=== PATIENT | male | born 1990 | race Caucasian/White ===

== ENCOUNTER 2021-12-16 04:58 | Emergency (ER) | payer SELFPAY ==
[2021-12-16] MEDS ORDERED: LORazepam 1 MG TAB PO ONE (07:10)
[2021-12-16] MEDS ORDERED: SODIUM CHLORIDE 0.9% 1000 ML 1,000 ML IV ONE ×2 (07:10→14:16)
[2021-12-16] MEDS ORDERED: LORazepam 2 MG/ML VIAL ONE (07:48)
[2021-12-16] MEDS ORDERED: LORazepam 2 MG/ML VIAL IV ONE ×3 (07:53→13:02)
--- NOTE | 2021-12-16 07:57 | Emergency Department Report ---
ED General Adult HPI - General Chief complaint: Chest Pain Stated complaint: CHEST PAIN Time Seen by Provider: 12/16/21 06:34 Source: EMS Mode of arrival: Stretcher Limitations: No Limitations - History of Present Illness Initial comments: 30-year-old male patient presents with complaints of chest pain, shortness of breath, and tremors starting about 1 hour ago. He reports that he is a chronic alcoholic and that his last drink was around 12 AM last night in which he had 3 beers. He also reports that he drank 3 twisted teas that are high in caffeine. Past medical history includes alcoholic induced pancreatitis. He denies any cough, hemoptysis, loss of taste or smell, or being vaccinated against COVID-19. No leg pain/swelling, recent long travel, or history of DVT/PE/cancer per patient. He also admits to history of alcohol withdrawal seizures Severity scale (0 -10): 5 - Related Data Previous Rx's Medication Instructions Recorded Last Taken Type LORazepam [Ativan] 0.5 mg PO Q8H PRN #5 tablet 12/16/21 Unknown Rx Allergies Allergy/AdvReac Type Severity Reaction Status Date / Time No Known Allergies Allergy Unverified 12/16/21 07:55 ED Review of Systems ROS: Stated complaint: CHEST PAIN Other details as noted in HPI Constitutional: denies: chills, fever, malaise Respiratory: shortness of breath, SOB at rest. denies: cough, SOB with exertion Cardiovascular: chest pain Gastrointestinal: denies: abdominal pain, nausea, vomiting Skin: denies: change in color Neurological: denies: headache, numbness, paresthesias, abnormal gait Hematological/Lymphatic: denies: swollen glands ED Past Medical Hx - Past Medical History Previous Medical History?: No - Medications Home Medications: Home Medications Medication Instructions Recorded Confirmed Last Taken Type LORazepam [Ativan] 0.5 mg PO Q8H PRN #5 tablet 12/16/21 Unknown Rx ED Physical Exam - General Limitations: No Limitations General appearance: alert, anxious, other (Active tremor noted of right hand) - Head Head exam: Present: atraumatic, normocephalic - Eye Eye exam: Present: normal appearance. Absent: scleral icterus - Neck Neck exam: Present: normal inspection - Respiratory Respiratory exam: Present: normal lung sounds bilaterally. Absent: respiratory distress - Cardiovascular Cardiovascular Exam: Present: regular rate, normal rhythm. Absent: systolic murmur, diastolic murmur, rubs, gallop - GI/Abdominal GI/Abdominal exam: Present: soft. Absent: distended, tenderness - Extremities Exam Extremities exam: Present: full ROM. Absent: calf tenderness (No tenderness to palpation or swelling noted to the legs bilaterally) - Neurological Exam Neurological exam: Present: alert, oriented X3, normal gait - Expanded Neurological Exam Expanded Best Eye Response ([place]): (4) open spontaneously Best Motor Response ([place]): (6) obeys commands Best Verbal Response ([place]): (5) oriented Casandra Total: 15 - Psychiatric Psychiatric exam: Present: normal affect, normal mood - Skin Skin exam: Present: warm, dry, intact, normal color. Absent: rash ED Course Vital Signs 12/16/21 04:58 Temperature 98.9 F Pulse Rate 95 H Respiratory 18 Rate Blood Pressure 129/86 [Right] O2 Sat by Pulse 99 Oximetry ED Medical Decision Making - Lab Data Result diagrams: 12/16/21 10:28 12/16/21 10:28 Lab Results 12/16/21 12/16/21 12/16/21 Range/Units 10:28 10:28 10:28 WBC 5.5 (4.5-11.0) K/mm3 RBC 4.99 (3.65-5.03) M/mm3 Hgb 15.9 H (11.8-15.2) gm/dl Hct 48.4 H (35.5-45.6) % MCV 97 H (84-94) fl MCH 32 (28-32) pg MCHC 33 (32-34) % RDW 13.6 (13.2-15.2) % Plt Count 102 L (140-440) K/mm3 Lymph % (Auto) 20.1 (13.4-35.0) % [place] % (Auto) 8.0 H (0.0-7.3) % Eos % (Auto) 0.2 (0.0-4.3) % Baso % (Auto) 1.2 (0.0-1.8) % Lymph # (Auto) 1.1 L (1.2-5.4) K/mm3 [place] # (Auto) 0.4 (0.0-0.8) K/mm3 Eos # (Auto) 0.0 (0.0-0.4) K/mm3 Baso # (Auto) 0.1 (0.0-0.1) K/mm3 Seg Neutrophils % 70.5 H (40.0-70.0) % Seg Neutrophils # 3.9 (1.8-7.7) K/mm3 Sodium 137 (137-145) mmol/L Potassium 3.7 (3.6-5.0) mmol/L Chloride 99.9 (98-107) mmol/L Carbon Dioxide 21 L (22-30) mmol/L Anion Gap 20 mmol/L BUN 2 L (9-20) mg/dL Creatinine 0.5 L (0.8-1.3) mg/dL Estimated GFR > 60 ml/min BUN/Creatinine Ratio 4 % Glucose 100 (75-100) mg/dL Calcium 8.8 (8.4-10.2) mg/dL Total Bilirubin 1.80 H (0.1-1.2) mg/dL AST 168 H (5-40) units/L ALT 49 (7-56) units/L Alkaline Phosphatase 228 H (35-129) units/L Troponin T < 0.010 (0.00-0.029) ng/mL NT-Pro-B Natriuret Pep 5.07 (0-450) pg/mL Total Protein 8.3 H (6.3-8.2) g/dL Albumin 4.0 (3.9-5) g/dL Albumin/Globulin Ratio 0.9 % Plasma/Serum Alcohol 0.09 H (0-0.07) % - Medical Decision Making 30-year-old male patient presents with complaints of chest pain, shortness of breath, and tremors starting about 1 hour ago. He reports that he is a chronic alcoholic and that his last drink was around 12 AM last night in which he had 3 beers. He also reports that he drank 3 twisted teas that are high in caffeine. Past medical history includes alcoholic induced pancreatitis. He denies any cough, hemoptysis, loss of taste or smell, or being vaccinated against COVID-19. No leg pain/swelling, recent long travel, or history of DVT/PE/cancer per patient. He also admits to history of alcohol withdrawal seizures CIWAA score = 6 Patient given 2 rounds of IV Ativan 2 mg, banana bag, normal saline, and oral Klonopin. Troponin is normal. No acute abnormalities noted on EKG or chest x- ray. He denies any further chest pain. Heart score = 1. Tremor significantly improved. He is clinically sober. Discussed abnormal LFTs, patient verbalizes history of this. Patient given information for alcohol abuse. Discussed strict return precautions in detail with patient who verbalized understanding Critical care attestation.: If time is entered above; I have spent that time in minutes in the direct care of this critically ill patient, excluding procedure time. ED Disposition Clinical Impression: Alcohol withdrawal Disposition: 01 HOME / SELF CARE / HOMELESS Is pt being admited?: No Condition: Stable Instructions: Finding Treatment for Addiction, Alcohol Withdrawal Syndrome, [id number] Prescriptions: LORazepam [Ativan] 0.5 mg PO Q8H PRN #5 tablet PRN Reason: tremors Referrals: PRIMARY CARE, [Primary Care Provider] - 3-5 Days [facility] [Provider Group] - 3-5 Days
[2021-12-16] MEDS ORDERED: THIAMINE 100 MG, FOLIC ACID 1 MG, MULTIPLE VITAMIN INJ, ADULT 10 ML in SODIUM CHLORIDE ... IV ONE (09:00)
[2021-12-16 10:50] LABS: Basophils # (Auto) 0.1 K/mm3 (0.0-0.1); Basophils % (Auto) 1.2 % (0.0-1.8); Eosinophils % (Auto) 0.2 % (0.0-4.3); Hematocrit 48.4 % (35.5-45.6); Hemoglobin 15.9 gm/dl (11.8-15.2); Lymphocytes # (Auto) 1.1 K/mm3 (1.2-5.4); Lymphocytes % (Auto) 20.1 % (13.4-35.0); Mean Corpuscular HGB Conc 33 % (32-34); Mean Corpuscular Volume 97 fl (84-94); Monocytes # (Auto) 0.4 K/mm3 (0.0-0.8); Platelet Count 102 K/mm3 (140-440); Red Blood Count 4.99 M/mm3 (3.65-5.03); Red Cell Distribution Width 13.6 % (13.2-15.2)
[2021-12-16 11:15] LABS: Alanine Aminotransferase 49 units/L (7-56); Blood Urea Nitrogen 2 mg/dL (9-20); Calcium 8.8 mg/dL (8.4-10.2); Hemolysis Index 5
[2021-12-16 11:22] LABS: BUN/Creatinine Ratio 4
--- NOTE | 2021-12-16 11:57 | XRay Report ---
CHEST 2 VIEWS INDICATION / CLINICAL INFORMATION: chest pain. COMPARISON: None available. FINDINGS: SUPPORT DEVICES: None. HEART / MEDIASTINUM: No significant abnormality. LUNGS / PLEURA: No significant pulmonary abnormality. No significant pleural effusion. No pneumothora x. ADDITIONAL FINDINGS: No significant additional findings. IMPRESSION: 1. No acute abnormality of the chest. Signer Name: José Ramos MD Signed: 12/16/2021 11:53 AM Workstation Name: [id number]
[2021-12-16 16:19] VITALS: BP 147/89
[2021-12-16] MEDS ORDERED: clonazePAM 0.5 MG TAB PO ONE (16:28)
== END 2021-12-16 16:19 | disposition home or self-care (01) ==
LOC: ED 04:58
DX: F10.239 Alcohol dependence with withdrawal, unspecified (principal); R07.9 Chest pain, unspecified; R06.02 Shortness of breath
CPT/HCPCS: 36415; 71046; 80053; 83880; 84484; 85025; 93005; 96365; 96366; 96375; 96376; 99284; J2060; J3411; J3490; J7030; 80320; Q0162; G0480

== ENCOUNTER 2022-07-19 18:16 | Inpatient (IN) | payer SELFPAY ==
[2022-07-19] MEDS ORDERED: SODIUM CHLORIDE 0.9% 1000 ML 1,000 ML ONE (18:42)
[2022-07-19] MEDS ORDERED: ONDANSETRON 4 MG/2 ML INJ IV ONE (19:14)
[2022-07-19] MEDS ORDERED: SODIUM CHLORIDE 0.9% 1000 ML 1,000 ML IV ONE (19:16)
--- NOTE | 2022-07-19 19:22 | Emergency Department Report ---
ED Alcohol HPI - General Chief Complaint: Alcohol Stated Complaint: ALCOHOL WITHDRAWL Time Seen by Provider: 07/19/22 18:58 Source: patient, EMS Mode of arrival: Stretcher Limitations: Physical Limitation - History of Present Illness Initial Comments: 31-year-old male alcoholic who presented with generalized shaking and nausea without emesis that started this morning and progressively getting worse. Last alcohol drink was yesterday. "When i drink i drink liquor and beer heavily". He also reports some mild abdominal discomfort. No other modifying or associated factors. MD Complaint: alcohol withdrawal - Related Data Previous Rx's Medication Instructions Recorded Last Taken Type LORazepam [Ativan] 0.5 mg PO Q8H PRN #5 tablet 12/16/21 Unknown Rx Allergies Allergy/AdvReac Type Severity Reaction Status Date / Time No Known Allergies Allergy Verified 07/19/22 18:26 ED Review of Systems ROS: Stated complaint: ALCOHOL WITHDRAWL Other details as noted in HPI Comment: All other systems reviewed and negative Neurological: other (generalized shakiness ) ED Past Medical Hx - Past Medical History Previous Medical History?: Yes Hx Hypertension: Yes - Social History Smoking Status: Never Smoker - Medications Home Medications: Home Medications Medication Instructions Recorded Confirmed Last Taken Type LORazepam [Ativan] 0.5 mg PO Q8H PRN #5 tablet 12/16/21 Unknown Rx ED Physical Exam - General Limitations: Physical Limitation General appearance: alert, in no apparent distress, anxious - Head Head exam: Present: atraumatic, normal inspection - Eye Eye exam: Present: normal appearance Pupils: Present: normal accommodation - ENT ENT exam: Present: normal exam, normal orophraynx, mucous membranes moist - Neck Neck exam: Present: normal inspection, full ROM. Absent: tenderness - Respiratory Respiratory exam: Present: normal lung sounds bilaterally. Absent: respiratory distress, accessory muscle use - Cardiovascular Cardiovascular Exam: Present: regular rate, normal rhythm, normal heart sounds - GI/Abdominal GI/Abdominal exam: Present: soft, normal bowel sounds. Absent: distended, tenderness - Extremities Exam Extremities exam: Present: normal inspection, full ROM, normal capillary refill. Absent: tenderness, pedal edema - Back Exam Back exam: Absent: tenderness - Neurological Exam Neurological exam: Present: alert, oriented X3 - Psychiatric Psychiatric exam: Present: normal affect, normal mood - Skin Skin exam: Present: warm, normal color ED Course Vital Signs 07/19/22 07/19/22 07/19/22 18:22 18:46 19:27 Temperature Pulse Rate 90 57 L Respiratory 16 18 16 Rate Blood Pressure Blood Pressure 159/68 129/77 [Right] O2 Sat by Pulse 99 98 Oximetry 07/19/22 07/19/22 07/19/22 19:31 19:45 19:50 Temperature 98.4 F Pulse Rate 68 71 75 Respiratory 14 25 H 23 Rate Blood Pressure 131/80 131/80 Blood Pressure 131/80 [Right] O2 Sat by Pulse 97 98 95 Oximetry 07/19/22 07/19/22 20:01 20:15 Temperature Pulse Rate 69 103 H Respiratory 22 18 Rate Blood Pressure 131/80 131/80 Blood Pressure [Right] O2 Sat by Pulse 97 95 Oximetry ED Medical Decision Making - Lab Data Result diagrams: 07/19/22 21:15 07/19/22 19:37 - EKG Data -: EKG Interpreted by [place] EKG shows normal: sinus rhythm Rate: normal - EKG Data 07/19/22 19:23 Noted with sinus rhythm at a rate of 62 bpm with prolonged QT interval with no ST elevation or depression in this abnormal ECG. - Medical Decision Making Patient presents with alcohol withdrawal with generalized body shakiness--patient denies any history of DT in the past or seizure--we will go ahead and give 2 mg of Versed since Ativan is now available and continue to mo nitor. We will also include 1 L of IV fluids and banana bag for symptomatic relief After about 45 minutes patient continues to complain of shakiness--I repeated another 2 mg of Versed and at this time decided to have patient admitted for alcohol withdrawal. Dr. Nevarez consulted who accept patient for further evaluation and treatment. Critical care attestation.: If time is entered above; I have spent that time in minutes in the direct care of this critically ill patient, excluding procedure time. ED Disposition Clinical Impression: Alcohol withdrawal Qualifiers: Complication of substance-induced condition: with unspecified complication Qualified Code(s): F10.939 - Alcohol use, unspecified with withdrawal, unspecified Disposition: ADMITTED INPATIENT Is pt being admited?: Yes Does the pt Need Aspirin: No Condition: Stable Time of Disposition: :57
[2022-07-19] MEDS ORDERED: THIAMINE 100 MG, FOLIC ACID 1 MG, MULTIPLE VITAMIN INJ, ADULT 10 ML in SODIUM CHLORIDE ... IV ONE (20:00)
[2022-07-19] MEDS ORDERED: MIDAZOLAM 5 MG/5 ML INJ MDV IV NR (20:00)
[2022-07-19 20:45] LABS: Alanine Aminotransferase 36 units/L (7-56); Albumin 4.1 g/dL (3.9-5); Blood Urea Nitrogen 13 mg/dL (9-20); Calcium 8.2 mg/dL (8.4-10.2); Hemolysis Index 377
[2022-07-19 21:09] LABS: BUN/Creatinine Ratio 22
[2022-07-19 22:03] LABS: Hematocrit 37.8 % (35.5-45.6); Hemoglobin 13.3 gm/dl (11.8-15.2); Mean Corpuscular HGB Conc 35 % (32-34); Mean Corpuscular Volume 90 fl (84-94); Platelet Count 155 K/mm3 (140-440); Red Cell Distribution Width 12.5 % (13.2-15.2)
[2022-07-19 22:15] LABS: INR 1.09 (0.87-1.13)
[2022-07-19 22:16] LABS: Partial Thromboplastin Time 25.7 Sec. (24.2-36.6)
[2022-07-19] MEDS ORDERED: ACETAMINOPHEN 325 MG TAB PO PRN (23:50)
[2022-07-19] MEDS ORDERED: ONDANSETRON 4 MG/2 ML INJ IV PRN (23:50)
[2022-07-19] MEDS ORDERED: MORPHINE 4 MG/1 ML INJ IV PRN (23:50)
[2022-07-19] MEDS ORDERED: MORPHINE 2 MG/1 ML INJ IV PRN (23:50)
[2022-07-19] MEDS ORDERED: HALOPERIDOL LACTATE 5 MG/1 ML INJ IV PRN (23:50)
[2022-07-19] MEDS ORDERED: ALBUTEROL 2.5 MG/3 ML NEBU IH PRN (23:50)
[2022-07-19] MEDS ORDERED: LORazepam 2 MG TAB PO PRN (23:50)
[2022-07-19] MEDS ORDERED: chlordiazePOXIDE 25 MG CAP PO PRN ×2 (23:50)
[2022-07-19] MEDS ORDERED: THIAMINE 100 MG, FOLIC ACID 1 MG, MULTIPLE VITAMIN INJ, ADULT 10 ML in SODIUM CHLORIDE ... IV SCH (23:53)
[2022-07-19] MEDS ORDERED: hydrALAZINE 20 MG/1 ML INJ IV PRN (23:57)
--- NOTE | 2022-07-19 23:57 | History and Physical Report ---
History of Present Illness Date of examination: 07/19/22 Date of admission: 07/19/22 Chief complaint: Alcohol withdrawal History of present illness: 31-year-old male with history of heavy alcohol abuse was brought to the emergency room because of generalized shaking and nausea without emesis that started this morning and progressively getting worse. Last alcohol drink was yesterday. "When i drink i drink liquor and beer heavily". He also reports some mild abdominal discomfort. No other modifying or associated factors. In the emergency room patient is found to have alcohol withdrawal. We are going to admit the patient we will put the patient on [facility] protocol Past History Past Medical History: hypertension, other Social history: alcohol abuse (Alcohol abuse) Family history: hypertension Medications and Allergies Allergies Allergy/AdvReac Type Severity Reaction Status Date / Time No Known Allergies Allergy Verified 07/19/22 18:26 Home Medications Medication Instructions Recorded Confirmed Last Taken Type LORazepam [Ativan] 0.5 mg PO Q8H PRN #5 tablet 12/16/21 Unknown Rx Active Meds: Active Medications Acetaminophen (Acetaminophen 325 Mg Tab) 650 mg PO Q4H PRN PRN Reason: Pain MILD(1-3)/Fever >100.5/ARIZA Thiamine HCl 100 mg/ Folic Acid 1 mg/ Multivitamins/Minerals 10 ml/ Sodium Chloride 1,011.2 mls @ 250 mls/hr IV ONCE ONE Stop: 07/20/22 00:02 Last Admin: 07/19/22 20:20 Dose: 250 mls/hr Ondansetron HCl (Ondansetron 4 Mg/2 Ml Inj) 4 mg IV Q8H PRN PRN Reason: Nausea And Vomiting Review of Systems All systems: negative Constitutional: fatigue, malaise, other (Shakiness) Exam - Constitutional Vitals: Temp Pulse Resp BP Pulse Ox 98.4 F 103 H 18 131/80 95 07/19/22 19:50 07/19/22 20:15 07/19/22 20:15 07/19/22 20:15 07/19/22 20:15 General appearance: Present: no acute distress, well-nourished - EENT Eyes: Present: PERRL ENT: hearing intact, clear oral mucosa - Neck Neck: Present: supple, normal ROM - Respiratory Respiratory effort: normal Respiratory: bilateral: CTA - Cardiovascular Heart Sounds: Present: S1 & S2. Absent: rub, click - Extremities Extremities: pulses symmetrical, No edema Peripheral Pulses: within normal limits - Abdominal General gastrointestinal: Present: soft, non-tender, non-distended, normal bowel sounds Male genitourinary: Present: normal - Integumentary Integumentary: Present: clear, warm, dry - Musculoskeletal Musculoskeletal: gait normal, strength equal bilaterally - Psychiatric Psychiatric: appropriate mood/affect, intact judgment & insight - Neurologic Neurologic: CNII-XII intact, moves all extremities Results - Labs CBC & Chem 7: 07/19/22 21:15 07/19/22 19:37 Labs: Laboratory Last Values WBC 13.7 K/mm3 (4.5-11.0) H 07/19/22 21:15 RBC 4.20 M/mm3 (3.65-5.03) 07/19/22 21:15 Hgb 13.3 gm/dl (11.8-15.2) 07/19/22 21:15 Hct 37.8 % (35.5-45.6) 07/19/22 21:15 MCV 90 fl (84-94) 07/19/22 21:15 MCH 32 pg (28-32) 07/19/22 21:15 MCHC 35 % (32-34) H 07/19/22 21:15 RDW 12.5 % (13.2-15.2) L 07/19/22 21:15 Plt Count 155 K/mm3 (140-440) 07/19/22 21:15 Lymph % (Auto) Plate Grainer Apprentice 07/19/22 21:15 [place] % (Auto) Plate Grainer Apprentice 07/19/22 21:15 Eos % (Auto) Plate Grainer Apprentice 07/19/22 21:15 Baso % (Auto) Plate Grainer Apprentice 07/19/22 21:15 Lymph # (Auto) Plate Grainer Apprentice 07/19/22 21:15 [place] # (Auto) Plate Grainer Apprentice 07/19/22 21:15 Eos # (Auto) Plate Grainer Apprentice 07/19/22 21:15 Baso # (Auto) Plate Grainer Apprentice 07/19/22 21:15 Seg Neutrophils % Plate Grainer Apprentice 07/19/22 21:15 Seg Neutrophils # Plate Grainer Apprentice 07/19/22 21:15 PT 15.3 Sec. (12.2-14.9) H 07/19/22 21:15 INR 1.09 (0.87-1.13) 07/19/22 21:15 APTT 25.7 Sec. (24.2-36.6) 07/19/22 21:15 Sodium 136 mmol/L (137-145) L 07/19/22 19:37 Potassium 4.7 mmol/L (3.6-5.0) 07/19/22 19:37 Chloride 100.4 mmol/L (98-107) 07/19/22 19:37 Carbon Dioxide 22 mmol/L (22-30) 07/19/22 19:37 Anion Gap 18 mmol/L 07/19/22 19:37 BUN 13 mg/dL (9-20) 07/19/22 19:37 Creatinine 0.6 mg/dL (0.8-1.3) L 07/19/22 19:37 Estimated GFR > 60 ml/min 07/19/22 19:37 BUN/Creatinine Ratio 22 % 07/19/22 19:37 Glucose 117 mg/dL (75-100) H 07/19/22 19:37 Calcium 8.2 mg/dL (8.4-10.2) L 07/19/22 19:37 Total Bilirubin 1.40 mg/dL (0.1-1.2) H 07/19/22 19:37 AST 80 units/L (5-40) H 07/19/22 19:37 ALT 36 units/L (7-56) 07/19/22 19:37 Alkaline Phosphatase 123 units/L (35-129) 07/19/22 19:37 Total Protein 7.0 g/dL (6.3-8.2) 07/19/22 19:37 Albumin 4.1 g/dL (3.9-5) 07/19/22 19:37 Albumin/Globulin Ratio 1.4 % 07/19/22 19:37 Lipase 51 units/L (13-60) 07/19/22 19:37 Plasma/Serum Alcohol < 0.01 % (0-0.07) 07/19/22 19:37 Assessment and Plan VTE prophylaxis?: Mechanical Plan of care discussed with patient/family: Yes - Patient Problems (1) Alcohol withdrawal Current Visit: Yes Status: Acute Qualifiers: Complication of substance-induced condition: with unspecified complication Qualified Code(s): F10.939 - Alcohol use, unspecified with withdrawal, unspecified Plan to address problem: Admit the patient to the [facility]. Patient counseled regarding quit drinking. Patient is put on CIWA protocol. Patient is also put on thiamine, folic acid and banana bag daily. We continue the home medication (2) Alcohol abuse Current Visit: Yes Status: Acute Plan to address problem: Patient counseled regarding quit drinking. Patient is put on CIWA protocol. Patient is also put on thiamine, folic acid and banana bag daily. We continue the home medication (3) Hypertension Current Visit: Yes Status: Acute Plan to address problem: Hydralazine 10 mg IV every 6 hours as needed. We continue the home medication. We will monitor the patient closely (4) DVT prophylaxis Current Visit: Yes Status: Acute Plan to address problem: SCD for DVT prophylaxis. Pepcid 20 mg p.o. twice daily for GI prophylaxis. Patient is a full code
[2022-07-20 06:04] LABS: Basophils % (Auto) 0.5 % (0.0-1.8); Eosinophils % (Auto) 0.4 % (0.0-4.3); Lymphocytes # (Auto) 2.6 K/mm3 (1.2-5.4); Lymphocytes % (Auto) 27.8 % (13.4-35.0); Mean Corpuscular HGB Conc 36 % (32-34); Mean Corpuscular Volume 89 fl (84-94); Monocytes # (Auto) 0.5 K/mm3 (0.0-0.8); Monocytes % (Auto) 4.9 % (0.0-7.3); Platelet Count 153 K/mm3 (140-440); Red Blood Count 4.51 M/mm3 (3.65-5.03); Red Cell Distribution Width 12.4 % (13.2-15.2)
[2022-07-20 06:06] LABS: Hemoglobin 14.4 gm/dl (11.8-15.2)
[2022-07-20 06:10] LABS: Alanine Aminotransferase 33 units/L (7-56); Albumin 4.1 g/dL (3.9-5); Blood Urea Nitrogen 13 mg/dL (9-20); Calcium 8.6 mg/dL (8.4-10.2); Hemolysis Index 9
[2022-07-20 06:20] LABS: BUN/Creatinine Ratio 19
--- NOTE | 2022-07-20 08:40 | Electrocardiograph Report ---
[facility] Test Date: 2022-07-19 Test Time: 18:36:38 Pat Name: GENEVA ZAMBRANO Department: Room: A376 1 Gender: M Recreational Aide: PAMELA : 1990 Requested By: NAILA SHANKAR Order Number: [id number] Reading MD: Yobany Lao Measurements Intervals [place] Rate: 62 P: 24 MT: 149 QRS: 12 QRSD: 80 T: 12 QT: 524 QTc: 531 Interpretive Statements Sinus arrhythmia nonspecific st-t Compared to ECG 12/16/2021 06:09:32 Sinus rhythm no longer present Atrial premature complex(es) no longer present Electronically Signed On 07-20-2022 8:39:59 EDT by Yobany Lao
[2022-07-20] MEDS: LORazepam 2 MG TAB PO PRN ×3 (12:03→23:35)
[2022-07-20] MEDS: FAMOTIDINE 20 MG TAB PO SCH ×2 (12:05→21:23)
[2022-07-20] MEDS: D5W/0.45% NACL 1,000 ML IV SCH (12:10)
[2022-07-20] MEDS: IPRATROPIUM/ALBUTEROL SULFATE 3 ML AMPUL.NEB IH SCH ×3 (13:47→20:23)
[2022-07-20] MEDS ORDERED: THIAMINE 100 MG, FOLIC ACID 1 MG, MULTIPLE VITAMIN INJ, ADULT 10 ML in SODIUM CHLORIDE ... IV ONE (14:00)
--- NOTE | 2022-07-20 19:18 | Progress Note ---
Assessment and Plan - Patient Problems (1) Alcohol withdrawal Current Visit: Yes Status: Acute Qualifiers: Complication of substance-induced condition: with unspecified complication Qualified Code(s): F10.939 - Alcohol use, unspecified with withdrawal, unspecified Plan to address problem: Admit the patient to the [facility]. Patient counseled regarding quit drinking. Patient is put on CIWA protocol. Patient is also put on thiamine, folic acid and banana bag daily. We continue the home medication (2) Alcohol abuse Current Visit: Yes Status: Acute Plan to address problem: Patient counseled regarding quit drinking. Patient is put on CIWA protocol. Patient is also put on thiamine, folic acid and banana bag daily. We continue the home medication (3) Hypertension Current Visit: Yes Status: Acute Plan to address problem: Hydralazine 10 mg IV every 6 hours as needed. We continue the home medication. We will monitor the patient closely (4) DVT prophylaxis Current Visit: Yes Status: Acute Plan to address problem: SCD for DVT prophylaxis. Pepcid 20 mg p.o. twice daily for GI prophylaxis. Dean quintero is a full code Subjective Date of service: 07/20/22 Principal diagnosis: EtOH dependence and withdrawal Interval history: 31-year-old male with history of heavy alcohol abuse was brought to the emerge ncy room because of generalized shaking and nausea without emesis that started this morning and progressively getting worse. Last alcohol drink was yesterday. "When i drink i drink liquor and beer heavily". He also reports some mild abdominal discomfort. No other modifying or associated factors. In the emergency room patient is found to have alcohol withdrawal. We are going to admit the patient we will put the patient on CIWA protocol 07/20/2022 Patient still agitated Objective - Constitutional Vitals: Vital Signs - 12hr 07/20/22 07/20/22 07/20/22 07:30 08:00 08:30 Temperature Pulse Rate 51 L 52 L 55 L Respiratory 17 19 16 Rate Blood Pressure 135/78 119/83 119/83 O2 Sat by Pulse 99 97 98 Oximetry 07/20/22 07/20/22 07/20/22 08:40 08:50 09:00 Temperature Pulse Rate 63 56 L 50 L Respiratory 17 19 18 Rate Blood Pressure 119/83 119/83 119/83 O2 Sat by Pulse 98 99 98 Oximetry 07/20/22 07/20/22 07/20/22 09:10 09:20 09:30 Temperature Pulse Rate 48 L 48 L 49 L Respiratory 16 17 17 Rate Blood Pressure 119/83 119/83 119/83 O2 Sat by Pulse 98 99 99 Oximetry 07/20/22 07/20/22 07/20/22 09:40 09:50 10:00 Temperature Pulse Rate 53 L 51 L 54 L Respiratory 17 21 19 Rate Blood Pressure 119/83 119/83 119/83 O2 Sat by Pulse 100 98 98 Oximetry 07/20/22 07/20/22 07/20/22 10:10 10:20 10:30 Temperature Pulse Rate 75 58 L 58 L Respiratory 17 21 18 Rate Blood Pressure 119/83 119/83 119/83 O2 Sat by Pulse 99 98 97 Oximetry 07/20/22 07/20/22 07/20/22 10:40 10:50 11:00 Temperature Pulse Rate 65 72 66 Respiratory 24 15 20 Rate Blood Pressure 119/83 119/83 119/83 O2 Sat by Pulse 97 97 97 Oximetry 07/20/22 07/20/22 07/20/22 11:10 11:20 12:50 Temperature Pulse Rate 59 L 56 L Respiratory 21 22 Rate Blood Pressure 119/83 119/83 O2 Sat by Pulse 96 97 98 Oximetry 07/20/22 07/20/22 13:29 16:15 Temperature 98.8 F 97.6 F Pulse Rate 69 104 H Respiratory 16 16 Rate Blood Pressure 130/87 137/84 O2 Sat by Pulse 100 100 Oximetry General appearance: Present: no acute distress, well-nourished - EENT Eyes: PERRL, EOM intact ENT: hearing intact, clear oral mucosa Ears: bilateral: normal - Neck Neck: supple, normal ROM - Respiratory Respiratory effort: normal Respiratory: bilateral: CTA - Breasts Breasts: normal - Cardiovascular Heart rate: 108 Rhythm: regular Heart Sounds: Present: S1 & S2. Absent: gallop, rub Extremities: pulses intact, No edema, normal color, Full ROM - Gastrointestinal General gastrointestinal: Present: soft, non-tender, non-distended, normal bowel sounds - Genitourinary Male genitourinary: normal - Integumentary Integumentary: clear, warm, dry - Musculoskeletal Musculoskeletal: 1, strength equal bilaterally - Neurologic Neurologic: moves all extremities - Psychiatric Psychiatric: memory intact, appropriate mood/affect, intact judgment & insight - Labs CBC & Chem 7: 07/20/22 05:09 07/20/22 05:09 Labs: Abnormal lab results 07/19/22 07/19/22 07/19/22 Range/Units 19:37 21:15 21:15 WBC 13.7 H (4.5-11.0) K/mm3 MCHC 35 H (32-34) % RDW 12.5 L (13.2-15.2) % PT 15.3 H (12.2-14.9) Sec. Sodium 136 L (137-145) mmol/L Potassium (3.6-5.0) mmol/L Creatinine 0.6 L (0.8-1.3) mg/dL Glucose 117 H (75-100) mg/dL Calcium 8.2 L (8.4-10.2) mg/dL Total Bilirubin 1.40 H (0.1-1.2) mg/dL AST 80 H (5-40) units/L Alkaline Phosphatase (35-129) units/L 07/20/22 07/20/22 Range/Units 05:09 05:09 WBC (4.5-11.0) K/mm3 MCHC 36 H (32-34) % RDW 12.4 L (13.2-15.2) % PT (12.2-14.9) Sec. Sodium 136 L (137-145) mmol/L Potassium 3.4 L D (3.6-5.0) mmol/L Creatinine 0.7 L (0.8-1.3) mg/dL Glucose (75-100) mg/dL Calcium (8.4-10.2) mg/dL Total Bilirubin 2.20 H (0.1-1.2) mg/dL AST 49 H (5-40) units/L Alkaline Phosphatase 134 H (35-129) units/L
[2022-07-20] MEDS ORDERED: MAGNESIUM SULFATE 2 GM/50 ML BAG IV ONE (19:29)
[2022-07-20] MEDS ORDERED: POTASSIUM CHLORIDE ER 20 MEQ TAB PO ONE (19:30)
[2022-07-20 21:53] LABS: Amphetamine Screen,Urine Negative; Cocaine Screen,Urine Negative; Methadone Screen,Urine Negative; Opiate Screen,Urine Negative
[2022-07-20 21:56] LABS: Color,Urine Yellow (Yellow)
[2022-07-20 21:57] LABS: Mucus,Urine FEW /HPF; RBC,Urine < 1.0 /HPF (0.0-6.0)
[2022-07-20 21:58] LABS: WBC,Urine < 1.0 /HPF (0.0-6.0)
[2022-07-20 22:05] LABS: Benzodiazepines Screen,Urine Positive; Cannabinoid Screen,Urine Positive
[2022-07-21] MEDS: IPRATROPIUM/ALBUTEROL SULFATE 3 ML AMPUL.NEB IH SCH ×3 (01:27→14:47)
[2022-07-21] MEDS: D5W/0.45% NACL 1,000 ML IV SCH ×2 (02:36→10:03)
[2022-07-21 04:45] LABS: Basophils % (Auto) 0.3 % (0.0-1.8); Eosinophils # (Auto) 0.1 K/mm3 (0.0-0.4); Mean Corpuscular HGB Conc 36 % (32-34); Mean Corpuscular Volume 88 fl (84-94); Monocytes # (Auto) 0.3 K/mm3 (0.0-0.8); Monocytes % (Auto) 4.5 % (0.0-7.3); Platelet Count 130 K/mm3 (140-440); Red Blood Count 4.38 M/mm3 (3.65-5.03); Red Cell Distribution Width 12.6 % (13.2-15.2)
[2022-07-21 04:47] LABS: Hematocrit 38.7 % (35.5-45.6)
[2022-07-21 05:05] LABS: Alanine Aminotransferase 30 units/L (7-56); Blood Urea Nitrogen 7 mg/dL (9-20); Calcium 8.4 mg/dL (8.4-10.2); Hemolysis Index 5
[2022-07-21 05:11] LABS: BUN/Creatinine Ratio 12
[2022-07-21 08:44] VITALS: BP 140/85
[2022-07-21] MEDS ORDERED: FOLIC ACID 1 MG TAB PO SCH (10:00)
[2022-07-21] MEDS ORDERED: THIAMINE 100 MG TAB PO SCH (10:00)
[2022-07-21] MEDS ORDERED: MULTIVITAMINS ,THERAPEUTIC TAB PO SCH (10:00)
[2022-07-21] MEDS: FAMOTIDINE 20 MG TAB PO SCH (10:01)
--- NOTE | 2022-07-22 12:27 | Discharge Summary ---
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 Last alcohol drink was yesterday. "When i drink i drink liquor and beer heavily". He also reports some mild abdominal discomfort. No other modifying or associated factors. In the emergency room patient is found to have alcohol withdrawal. We are going to admit the patient we will put the patient on CIWA protocol 07/20/2022 Patient still agitated 07/21/2022 Patient less agitated Patient wants to sign out AMA Patient says he has some important time to do Patient not ready for discharge Assessment and Plan - Patient Problems (1) Alcohol withdrawal Current Visit: Yes Status: Acute Qualifiers: Complication of substance-induced condition: with unspecified complication Qualified Code(s): F10.939 - Alcohol use, unspecified with withdrawal, unspecified Plan to address problem: Admit the patient to the [facility]. Patient counseled regarding quit drinking. Patient is put on CIWA protocol. Patient is also put on thiamine, folic acid and banana bag daily. We continue the home medication (2) Alcohol abuse Current Visit: Yes Status: Acute Plan to address problem: Patient counseled regarding quit drinking. Patient is put on CIWA protocol. Patient is also put on thiamine, folic acid and banana bag daily. We continue the home medication (3) Hypertension Current Visit: Yes Status: Acute Plan to address problem: Hydralazine 10 mg IV every 6 hours as needed. We continue the home medication. We will monitor the patient closely (4) DVT prophylaxis Current Visit: Yes Status: Acute Plan to address problem: SCD for DVT prophylaxis. Pepcid 20 mg p.o. twice daily for GI prophylaxis. Patient is a full code Disposition: LEFT AGAINST MEDICAL ADVICE Final Discharge Diagnosis (Prints w/discharge instructions): Alcohol withdrawal. Alcohol abuse. EtOH dependence. Hypertension Time spent for discharge: 35 minutes - Discharge Diagnoses (1) Alcohol abuse Status: Acute (2) Alcohol withdrawal Status: Acute Qualifiers: Complication of substance-induced condition: with unspecified complication Qualified Code(s): F10.939 - Alcohol use, unspecified with withdrawal, unspecified (3) Hypertension Status: Acute (4) DVT prophylaxis Status: Acute Core Measure Documentation - Palliative Care Palliative Care/ Comfort Measures: Not Applicable - Core Measures Any of the following diagnoses?: none Exam - Constitutional Vitals: Temp Pulse Resp BP Pulse Ox 98.7 F 130 H 18 140/85 98 07/21/22 08:37 07/21/22 14:00 07/21/22 14:00 07/21/22 08:37 07/21/22 11:37 General appearance: Present: no acute distress, well-nourished - EENT Eyes: Present: PERRL ENT: hearing intact, clear oral mucosa - Neck Neck: Present: supple, normal ROM - Respiratory Respiratory effort: normal Respiratory: bilateral: CTA - Cardiovascular Heart rate: 78 Rhythm: regular Heart Sounds: Present: S1 & S2. Absent: rub, click - Extremities Extremities: pulses symmetrical, No edema Peripheral Pulses: within normal limits - Abdominal General gastrointestinal: Present: soft, non-tender, non-distended, normal bowel sounds Male genitourinary: Present: normal - Integumentary Integumentary: Present: clear, warm, dry - Musculoskeletal Musculoskeletal: gait normal, strength equal bilaterally - Psychiatric Psychiatric: appropriate mood/affect, intact judgment & insight - Neurologic Neurologic: CNII-XII intact, moves all extremities Plan Activity: no restrictions Diet: low salt Follow up with: PRIMARY CAREMD [Primary Care Provider] - 3-5 Days
== END 2022-07-21 18:30 | disposition left against medical advice (07) | DRG 894 ==
LOC: ED 18:16 → 3A 23:51
PROVIDERS: ADMIT Hospitalist; ATTEND Internal Medicine
DX: F10.139 Alcohol abuse with withdrawal, unspecified (principal); I10 Essential (primary) hypertension; E87.6 Hypokalemia; Z53.29 Procedure and treatment not carried out because of patient's decision for other reasons; Z82.49 Family history of ischemic heart disease and other diseases of the circulatory system
CPT/HCPCS: 36415; 80053; 80307; 80320; 81001; 82150; 83690; 83735; 85025; 85049; 85610; 85730; 93005; 94640; 94760; 99285; G0378; J3490; J7070; G0480; J1630; J2250; J2270; J2405; J3411; J3475; J7030